=== PATIENT | male | born 1995 | race African-American/Black ===

== ENCOUNTER 2019-06-26 15:20 | Emergency (ER) | payer BC ==
[~2019-06-26] VITALS: Ht 172.7 cm; Wt 104.3 kg
--- NOTE | 2019-06-26 16:04 | NUR ---
samuel, c/o left big toe pain x 3 weeks s/p hit a parking meter, on room air, breathing evenly and unlabored. kept comfortable, will continue to monitor accordingly.
[2019-06-26 16:21] VITALS: BP 148/109
--- NOTE | 2019-06-26 16:21 | NUR ---
Patient discharged to home in stable condition. Written and verbal after care instructions given. Patient verbalizes understanding of instruction.
[2019-06-26] MEDS ORDERED: ACETAMINOPHEN 325 MG TABLET PO ONE (16:30)
== END 2019-06-26 16:21 | disposition home or self-care (01) ==
LOC: ER 15:29
DX: S90.112A Contusion of left great toe without damage to nail, initial encounter (principal); I10 Essential (primary) hypertension; F41.9 Anxiety disorder, unspecified; W22.8XXA Striking against or struck by other objects, initial encounter; Y93.89 Activity, other specified; Y92.89 Other specified places as the place of occurrence of the external cause; Y99.8 Other external cause status